=== PATIENT | male | born 1990 | race Caucasian/White ===

== ENCOUNTER 2020-06-15 02:08 | Emergency (ER) | payer BC, SELFPAY ==
[2020-06-15] VITALS (29 sets, daily range): BP systolic 108–140; BP diastolic 63–93; PULSE 53–105; RESP 14–21; TEMP 36.6; O2SAT 93–98
--- NOTE | ~2020-06-15 | XR_ITS ---
EXAMINATION: XR chest 1V portable DATE: 06/15/2020 03:16 INDICATION: Chest tightness and shortness of breath TECHNIQUE: frontal view of the chest was obtained. COMPARISON: None FINDINGS: The lungs are clear with no focal airspace opacities, pulmonary edema, pleural effusion or pneumothor ax. The cardiomediastinal silhouette is normal. Visualized bones and soft tissues are unremarkable. IMPRESSION: 1. No acute cardiopulmonary disease. Reviewed, dictated and finalized at location A.
--- NOTE | 2020-06-15 02:51 | ECG_ITS ---
Measurements Intervals [place] Rate: 73 P: 70 MN: 127 QRS: 33 QRSD: 98 T: 28 QT: 365 QTc: 404 Interpretive Statements SINUS RHYTHM BASELINE ARTIFACT- I, II, III, AVR, AVL, AVF NORMAL ECG Electronically Signed On 06-15-2020 7:05:56 CDT by Refugio Mckinley D.O.
--- NOTE | 2020-06-15 02:53 | ED.ANXIETY ---
HPI - Anxiety General Chief Complaint: Anxiety Stated Complaint: anxiety Time Seen by Provider: 06/15/20 02:13 Source: patient Mode of arrival: EMS Limitations: no limitations History of Present Illness HPI narrative: This is a 29 year old male with history of anxiety who presents for evaluation of a possible panic attack. He was awaken at 1 am this morning with his stomach in knots , chest tightness and heart pounding. He also reports he has tingling to his extremities and sob. He states he started thinking he could be having a heart attack since he was having left arm tightness. He is also aware this could be a panic attack . He states he tried some breathing techniques but he still felt bad so he called 911. He reports he feels better now. He feels aching all over and he still feels anxious. He has been on anxiety medication for 2 years. Related Data Home Medications Medication Instructions Recorded Confirmed escitalopram oxalate 20 mg PO DAILY 06/15/20 Allergies Allergy/AdvReac Type Severity Reaction Status Date / Time No Known Allergies Allergy Verified 06/15/20 02:25 Review of Systems Review of Systems: All systems reviewed & are unremarkable except as noted in HPI and below Constitutional: Constitutional: Denies chills, Reports fatigue and Denies fever(s) ENT: Reports sore throat Cardiovascular: Cardiovascular: Reports chest pain and Reports rapid heart rate Respiratory: Respiratory: Denies cough and Reports dyspnea Gastrointestinal: Gastrointestinal: Reports abdominal pain, Denies diarrhea, Denies nausea and Denies vomiting Neurologic: Reports dizziness Psychiatric: Psychiatric: Reports anxiety [facility] Past Medical History Medical History (Updated 06/15/20 @ 06:36 by Payton Glover MD) Anxiety Surgical History Surgical History (Updated 06/15/20 @ 03:19 by Payton Glover MD) No pertinent past surgical history Social History Social History (Updated 06/15/20 @ 03:19 by Payton Glover MD) Smoking status: Current some day smoker Tobacco type: e-cigarettes/vaping Alcohol intake: current Alcohol use details: last drank alcohol 2 days. He states he only drinks 2 times a month Substance use: never Exam Const: General: no acute distress Orientation/consciousness: patient oriented x3 Eyes: Pupils: Equal, round and reactive pupils present EOM: EOMs intact bilaterally Chest: Chest palpation & inspection: normal inspection of the chest Resp: Effort & Inspection: normal respiratory effort and no retractions Auscultation: clear to auscultation bilaterally Cardio: Rate: regular rate Rhythm: regular rhythm Heart sounds: no murmurs GI: GI Palp: Yes Soft to palpation, No Tenderness to palpation present (GI) and No Guarding due to palpation present (GI) Auscultation: normal bowel sounds Skin: General skin exam: normal color Rashes: no rashes Neuro: General: patient oriented x3, moves all extremities and CN's II-XI intact bilaterally Psych: Mental Status: mental status grossly normal Affect: normal affect Course Reevaluation(s) Reevaluation #1: He states he feels better. I have reviewed labs with patient that he will be awaiting 3 hour troponin for disposition. This is likely an anxiety attack. Date: 06/15/20 Time: 04:27 Vital Signs Vital signs: Vital Signs Temperature 97.8 F 06/15/20 02:14 Pulse Rate 95 06/15/20 02:14 Respiratory Rate 16 06/15/20 02:14 Blood Pressure 140/93 H 06/15/20 02:14 Pulse Oximetry 97 06/15/20 02:14 Temperature 97.8 F 06/15/20 02:14 Pulse Rate 59 L 06/15/20 06:15 Respiratory Rate 21 H 06/15/20 06:15 Blood Pressure 108/63 06/15/20 06:01 Pulse Oximetry 93 06/15/20 06:15 MDM - Anxiety Lab Data Attestation: I reviewed the patient's lab results. Result diagrams: 06/15/20 03:05 06/15/20 03:05 Labs: Lab Results 06/15/20 06/15/20 06/15/20 Range/Uni
[2020-06-15] MEDS: hydrOXYzine pamoate 25 MG CAPSULE 50 MG PO (03:12)
[2020-06-15] MEDS: ASPIRIN 81 MG CHEWABLE TABLET 324 MG PO (03:12)
[2020-06-15 03:15] LABS: Basophils Percent Auto 0.6 % (0.2-1.2); Eosinophils Absolute Auto 0.1 K/mm3 (0-0.3); Eosinophils Percent Auto 1.5 % (0-4.4); Hematocrit 42.5 % (42.0-52.0); Hemoglobin 14.5 g/dL (14.0-18.0); Immature Granulocyte Absolute 0.02 K/mm3 (0.00-0.031); Immature Granulocyte Percent A 0.3 % (0-0.5); Lymphocytes Absolute Auto 2.45 K/mm3 (0.9-3.2); Lymphocytes Percent Auto 35.7 % (18.3-44.2); Mean Corpuscular HGB Conc 34.1 g/dl (32-36); Mean Corpuscular Hemoglobin 33.1 pg (26-34); Mean Platelet Volume 10.9 fl (7.4-10.4); Monocytes Absolute Auto 0.6 K/mm3 (0.1-0.6); Monocytes Percent Auto 8.3 % (2.6-8.5); Neutrophils Absolute Auto 3.7 K/mm3 (1.3-6.7); Neutrophils Percent Auto 53.6 % (45.5-73.1); Platelet Count Result 208 k/mm3 (150-375); Red Blood Count 4.38 M/mm3 (4.6-6.20); Red Cell Distribution Width 11.9 % (11.5-14.5); White Blood Count 6.9 K/mm3 (4.5-10.0)
[2020-06-15 03:33] LABS: INR 0.9; Prothrombin Time 12.6 Seconds (11.1-14.7)
[2020-06-15 03:34] LABS: Anion Gap 8 mmol/L (8-16); Blood Urea Nitrogen 17 mg/dL (9-20); Calcium 9.7 mg/dL (8.4-10.2); Carbon Dioxide 31 mmol/L (22-30); Chloride 100 mmol/L (98-107); Estimated CRCL calculation 82 ml/min; Estimated Glomerular Filt Rate > 60; Glucose 116 mg/dL (75-110); Lipase 83 U/L (23-300); Magnesium 1.8 mg/dL (1.6-2.3); Partial Thromboplastin Time 24.5 SECONDS (22.3-36.8); Potassium 3.6 mmol/L (3.4-5.0); Sodium 139 mmol/L (137-145)
[2020-06-15 03:37] LABS: D Dimer 0.27 ug/mL (<0.48)
[2020-06-15 03:46] LABS: Troponin I < 0.012 ng/mL (0.000-0.034)
[2020-06-15 06:25] LABS: Troponin I < 0.012 ng/mL (0.000-0.034)
== END 2020-06-15 06:46 | disposition home or self-care (01) ==
PROVIDERS: Emergency Provider General Practice; PCP Family Medicine
DX: F41.9 Anxiety disorder, unspecified (principal); R07.89 Other chest pain; F17.290 Nicotine dependence, other tobacco product, uncomplicated
CPT/HCPCS: 36415; 71045; 80048; 83690; 83735; 84443; 84484; 85025; 85380; 85610; 85730; 93005; 99284; A9270

== ENCOUNTER 2020-08-17 09:32 | Emergency (ER) | payer BC, SELFPAY ==
[2020-08-17 09:41] VITALS: BP 125/76; PULSE 80; RESP 16; TEMP 36.8; O2SAT 99
--- NOTE | 2020-08-17 09:55 | ED.SKABFB ---
HPI - Skin/Abscess/Foreign Bdy General Chief complaint: Skin/Abscess/Foreign Body Stated complaint: TICK BITE Time Seen by Provider: 08/17/20 09:44 Source: patient and RN notes reviewed Mode of arrival: ambulatory Limitations: no limitations History of Present Illness HPI narrative: Patient presents today complaining of a tick bite to the left abdomen yesterday. He did pull the tick off of him last night but is unsure how long the tick was embedded in his skin. He also states there is possibly a tick embedded in his right buttock, but he cannot be sure because he cannot see fully. Patient denies any additional symptoms. States he had been staying in a cabin this weekend MD complaint: insect bite/sting Related Data Home Medications Medication Instructions Recorded Confirmed escitalopram oxalate 20 mg PO DAILY 06/15/20 Allergies Allergy/AdvReac Type Severity Reaction Status Date / Time No Known Allergies Allergy Verified 06/15/20 02:25 Review of Systems Review of Systems: Narrative: CONSTITUTIONAL: Denies body aches, fever, chills, or sweats. EYES: Denies visual changes, redness, or discharge. ENT: Denies rhinorrhea, congestion, sore throat, or otalgia. CARDIOVASCULAR: Denies chest pain, palpitations, or edema. RESPIRATORY: Denies cough or dyspnea. GASTROINTESTINAL: Denies abdominal pain, nausea, vomiting, or diarrhea. GENITOURINARY: Denies dysuria or hematuria. SKIN: Denies rash, itching, or wounds.+ Tick bite MUSCULOSKELETAL: Denies back pain, joint pain, or myalgia. NEUROLOGIC: Denies headache, numbness, tingling, or weakness. PSYCH: Denies depression or anxiety. [facility] Past Medical History Medical History (Updated 08/17/20 @ 10:01 by Yamileth Bernal, [facility], ) Anxiety Surgical History Surgical History (Updated 06/15/20 @ 03:19 by Payton Glover MD) No pertinent past surgical history Social History Social History (Updated 06/15/20 @ 03:19 by Payton Glover MD) Smoking status: Current some day smoker Tobacco type: e-cigarettes/vaping Alcohol intake: current Substance use: never Comments At time of signature, I have reviewed and agree with nursing past medical, surgical, social and family history unless otherwise noted. Please see nursing chart for further information. There is no relevant family history pertinent to the presenting complaint Exam Narrative: Exam Narrative: GENERAL: Well-appearing, well-nourished, and in no acute distress. HEAD: Normocephalic, atraumatic. EYES: EOMI. No redness or drainage. Conjunctivae normal. ENT: Mucous membranes pink and moist. NECK: Normal AROM. CHEST: No respiratory distress. EXTREMITIES: Normal range of motion. No edema. SKIN: Warm, dry, no rash. Capillary refill normal. Normal skin turgor. + Right buttock with a few small scabs, but no evidence of tick. Left lateral abdomen with small scab where tick was removed. No evidence of remaining parts of tick. Scant residual erythema noted. No edema or drainage noted. NEURO: No focal deficits. Alert and oriented x3. Gait steady. PSYCH: Normal affect. No signs of depression or anxiety. Course Vital Signs Vital signs: Vital Signs Temperature 98.3 F 08/17/20 09:41 Pulse Rate 80 08/17/20 09:41 Respiratory Rate 16 08/17/20 09:41 Blood Pressure 125/76 08/17/20 09:41 Pulse Oximetry 99 08/17/20 09:41 Temperature 98.3 F 08/17/20 09:41 Pulse Rate 80 08/17/20 09:41 Respiratory Rate 16 08/17/20 09:41 Blood Pressure 125/76 08/17/20 09:41 Pulse Oximetry 99 08/17/20 09:41 Reviewed. Pt has been instructed to follow up with his PCP regarding his elevated blood pressure today. MDM - Skin/Abscess/Foreign Bdy Differential Diagnosis Differential diagnosis: Likely abscess of skin or subcutaneous tissue, cellulitis, insect bites and other (Tick embedded) Critical Care Time Critical Care Time Critical Care Time: No Discharge Plan Discharge Clinical Im
== END 2020-08-17 10:06 | disposition home or self-care (01) ==
PROVIDERS: Emergency Provider Nurse Practitioner; PCP Family Medicine
DX: S30.861A Insect bite (nonvenomous) of abdominal wall, initial encounter (principal); W57.XXXA Bitten or stung by nonvenomous insect and other nonvenomous arthropods, initial encounter; F17.200 Nicotine dependence, unspecified, uncomplicated; F41.9 Anxiety disorder, unspecified
CPT/HCPCS: 99211; G0463